=== PATIENT | male | born 1940 | race Caucasian/White ===

== ENCOUNTER 2024-12-26 18:56 | Emergency (ER) | payer MEDICARE, OTHER ==
[~2024-12-26] VITALS: Ht 190.5 cm; Wt 113.4 kg
[2024-12-26 18:56] VITALS: BP 161/88; PULSE 75; RESP 18; TEMP 98.6; O2SAT 91
[2024-12-26] MEDS ORDERED: NS 1000ML 1,000 ML ONE (19:09)
[2024-12-26 19:13] LABS: BASOPHIL # 0.1 10^3/uL (0.0-0.1); BASOPHIL % 0.6 % (0.2-1.2); EOSINOPHIL # 0.1 10^3/uL (0.0-0.2); EOSINOPHIL % 1.1 % (0.0-5.0); HEMATOCRIT(ML) 44.2 % (37.0-53.0); HEMOGLOBIN 14.5 g/dL (13.9-16.3); LYMPHOCYTES # 1.28 10^3/uL1 (1.0-4.8); LYMPHOCYTES % 11.5 % (24.0-44.0); MEAN CORP HGB 31.7 pg (26-34); MEAN CORP HGB CONCENTRATION 32.8 g/dL (33-36.5); MEAN CORP VOLUME 96.7 fL (78-100); MONOCYTES # 1.1 10^3/uL (0.3-0.8); MONOCYTES % 9.5 % (5.0-12.0); NEUTROPHIL # 8.6 10^3/uL (1.8-7.7); NEUTROPHILS % 77.1 % (41.0-85.0); PLATELET COUNT 235 10^3/uL (150-400); RED BLOOD CELL 4.57 10^6/uL (4.50-5.90); RED CELL DISTRIBUTION WIDTH 14.1 % (11.5-14.5); WHITE BLOOD CELL 11.2 10^3/uL (4.5-11.0)
[2024-12-26 19:14] LABS: +ADD MANUAL DIFF(NO CHRG) NO
[2024-12-26] MEDS: NS 1000ML 1,000 ML STA (19:16)
[2024-12-26 19:26] LABS: PROTHROMBIN PROTIME 10.4 SEC (9.3-11.6)
[2024-12-26] MEDS ORDERED: MAGNESIUM 2 GRAM/50ML 50 ML IV ONE (19:44)
[2024-12-26 19:48] LABS: ALBUMIN(ML) 3.8 g/dL (3.4-5.0); ALBUMIN/GLOBULIN RATIO 1.027; ANION GAP 15.1; BUN/CREATININE RATIO 22.01 (10.0-20.0); CALCIUM 9.5 mg/dL (8.4-10.5); CREATINE KINASE MB 6.1 ng/mL (0.5-3.6); CREATININE SERUM 1.59 mg/dL (0.59-1.40); EST GFR, NON-AA 41.6 (>/=60); POTASSIUM 4.1 mmol/L (3.6-5.2)
[2024-12-26] MEDS: MAGNESIUM 2 GRAM/50ML 50 ML IV STA (19:49)
[2024-12-26 19:55] VITALS: BP 147/69; PULSE 67; RESP 18; TEMP 98.6; O2SAT 92
[2024-12-26 20:51] VITALS: BP 154/82; PULSE 75; RESP 18; TEMP 98.6; O2SAT 92
[2024-12-26 21:43] VITALS: BP 164/81; PULSE 71; RESP 18; TEMP 98.6; O2SAT 92
[2024-12-26 22:30] VITALS: BP 178/88; PULSE 77; RESP 18; TEMP 98.6; O2SAT 92
[2024-12-26] MEDS ORDERED: COMPAZINE ONE (22:41)
[2024-12-26 22:59] VITALS: BP 178/88; PULSE 77; RESP 18; TEMP 98.6; O2SAT 92
== END 2024-12-26 22:30 | disposition short-term general hospital (02) ==
LOC: ER 18:56
DX: R55 Syncope and collapse (principal); N17.9 Acute kidney failure, unspecified; R79.89 Other specified abnormal findings of blood chemistry; R94.31 Abnormal electrocardiogram [ECG] [EKG]; I10 Essential (primary) hypertension; M10.9 Gout, unspecified
CPT/HCPCS: 99285; 96365; 71045; 96361; 80053; 85025; 36415; 84484 ×2; 82553; 83880; 82550; 85610; 85730; 83735; 93005; J7030; J3475; J0780